=== PATIENT | female | born 1955 | race African-American/Black ===

== ENCOUNTER → 2016-09-12 | Outpatient (CLI) | payer MEDICARE ==
[~2016-09-12] MED LIST: ACETAMINOPHEN650 M1 PO; ADVAIR 250-501 EACH IH; ALBUTEROL17 GM INH; ALPRAZOLAM PO; ASPIRIN81 M1 PO; ASPIRIN81 M2 PO; ASPIRIN81 MG PO; ATENOLOL; ATENOLOL PO; ATENOLOL50 MG PO; AZITHROMYCIN250 MG PO; BACLOFEN10 MG PO; BACLOFEN20 M1 PO; BETAPACE PO; BETAPACE80 MG PO; CHANTIX1 MG PO; COLACE PO; COMBIVENT RESPIM4 GM IH; COMBIVENT14.7 GM INH; COUMADIN2.5 MG PO; CYMBALTA PO; DALIRESP500 MCG PO; DIAZEPAM PO; DURAGESIC75 MCG EXT; FENTANYL PATCH TOP; FENTANYL1 EAC1 TD; FERROUS SULFATE; FLEXERIL; FUROSEMIDE40 MG PO; GUAIFENESIN LA600 M1 PO; HCTZ PO; HYDROCHLOROTHIA25 MG PO; IRON325 ( 651 PO; K-DUR20 ME2 PO; K-LOR20 MEQ PO; KCL; KCL PO; LASIX; LASIX PO; LASIX20 MG PO; LISINOPRIL20 MG PO; LORTAB 7.5-5001 TAB PO; LOTREL; LOTREL 10/20 MG1 CAP; LOTREL 5/10 MG1 CAP; MULTI VITAMIN; MULTI-VITAMIN1 TAB; NORCO 5/325 TAB1 TAB PO; OMEPRAZOLE40 MG PO; OSCAL; OYSTER CALCIUM500 MG; PAXIL; PHENERGAN PO; PHENERGAN25 MG PO; PREDNISONE PO; PRILOSEC20 M1 PO; SERTRALINE HCL100 MG PO; SERTRALINE HCL50 M1 PO; SOTALOL120 MG PO; SYMBICORT INH; TENORMIN50 MG PO; TYLENOL PM; VITAMIN B12-FO1 EACH PO; VITAMIN C1000 M1 PO; VITAMIN D; VITAMIN D PO; XANAX0.5 MG PO; [UNRECOGNIZED DRUG - OTHER]
--- NOTE | ~2016-09-12 | MY11 ---
[facility] A Service of [facility] RADIOLOGY TEXT RESULTS PATIENT: DARSHANA GARCIA LOCATION: [facility] : 57 UNIT #: [id number] AGE: [address]: Liyah Smith MD SEX: F ORDER DR: [id number] [facility] [address] [place], [place] [address] [id number] O MR#: [id number] Acc #: [id number] NAME: DARSHANA GARCIA : 1955 SEX: F STUDY DATE/TIME: 09/12/2016 8:37 UNIT: [facility] ROOM: STUDY DESCRIPTION: MY Mammogram Screening Dig N[place]en Attending Physician: Liyah Smith M.D. Referring Physician: Liyah Smith M.D. Ordering Physician: Liyah Smith M.D. Primary Care Physician: Liyah Smith M.D. MEDICAL IMAGING REPORT This report is preliminary unless electronic signature is present EXAM Digital screening mammogram, 09/12/2016 HISTORY 61-year-old female no risk elevation. Annual screening. COMPARISON 07/15/2011, 03/21/2014 FINDINGS Digital imaging of each breast was completed utilizing a two-view examination of each breast in craniocaudal and mediolateral-oblique projections. Review and interpretation of digital mammograms include a second review in conjunction with FDA-approved CAD device. There is a normal parenchymal presentation bilaterally consistent with the patient's age. There are no breast masses imaged and no parenchymal asymmetry is visualized. There are no suspicious microcalcifications and I see no focal architectural disturbance. IMPRESSION Negative screening digital mammogram. One-year followup recommended. Patients over the age of 40 are entered into a reminder system with target due date for the next mammogram. A result letter will also be sent to the patient. BIRADS: 1 Negative ADDENDUM Breast parenchyma is fatty replaced. Dictated by... Jaren Cid M.D. [facility] A Service [facility] RADIOLOGY TEXT RESULTS PATIENT: DARSHANA GARCIA LOCATION: [facility] : 57 UNIT #: [id number] AGE: [address]: Liyah Smith MD SEX: F ORDER DR: THIS IS AN ELECTRONICALLY VERIFIED REPORT Jaren Cid M.D. at 09/12/2016 10:03 AM Sabrina TD: 09/12/2016 09:41 JOB #: [id number] MEDICAL IMAGING REPORT Page 1 of 1 COPY
== END | disposition home or self-care (01) ==
LOC: CWCC 08:12
DX: Z12.31 Encounter for screening mammogram for malignant neoplasm of breast (principal); R92.8 Other abnormal and inconclusive findings on diagnostic imaging of breast
CPT/HCPCS: G0202

== ENCOUNTER → 2016-09-23 | Outpatient (CLI) | payer MEDICARE ==
--- NOTE | ~2016-09-23 | MR176 ---
[facility] A Service of [facility] RADIOLOGY TEXT RESULTS PATIENT: DARSHANA GARCIA LOCATION: [facility] : 57 UNIT #: [id number] AGE: [address]: Liyah Smith MD SEX: F ORDER DR: [id number] [facility] [address] [place], [place] [address] [id number] O MR#: [id number] Acc #: [id number] NAME: DARSHANA GARCIA : 1955 SEX: F STUDY DATE/TIME: 09/23/2016 15:04 UNIT: [facility] ROOM: STUDY DESCRIPTION: MR Thoracic Wo Contrast Attending Physician: Liyah Smith M.D. Referring Physician: Liyah Smith M.D. Ordering Physician: Liyah Smith M.D. Primary Care Physician: Liyah Smith M.D. [facility] CENTER REPORT This report is preliminary unless electronic signature is present. EXAM Thoracic spine MRI HISTORY Severe back pain across the shoulders, worse when sitting up, accompanied by left leg weakness. Back pain has been chronic for 10 years. Intense pain has worsened over the past year. TECHNIQUE Multiplanar imaging of the thoracic spine was performed with short and long TR. FINDINGS There are moderate degenerative changes at all thoracic discs. There is no significant thoracic disc herniation or osteophyte formation back into the spinal canal. The thoracic spinal canal is widely patent. There is no evidence of marrow edema to suggest a recent fracture. The thoracic cord is normal in size and signal. No paraspinous masses are seen. Thoracic aorta is generally tortuous and ectatic, but there is no evidence of aortic dissection. Maximum diameter of the upper descending thoracic aorta is 3.3 cm. IMPRESSION 1. Moderate multilevel thoracic degenerative disc disease with no significant canal narrowing or cord compression. 2. No cord lesions are seen. 3. Tortuous ectatic thoracic aorta without evidence of dissection. Dictated by... Jean Willis M.D. [facility] A Service of [facility] RADIOLOGY TEXT RESULTS PATIENT: DARSHANA GARCIA LOCATION: [facility] : 57 UNIT #: [id number] AGE: [address]: Liyah Smith MD SEX: F ORDER DR: THIS IS AN ELECTRONICALLY VERIFIED REPORT Jean Willis M.D. at 09/24/2016 4:29 PM Mike TD: 09/24/2016 13:27 JOB #: [id number] MRI CENTER REPORT Page 1 of 1 COPY
--- NOTE | ~2016-09-23 | MR113 ---
[facility] A Service of [facility] RADIOLOGY TEXT RESULTS PATIENT: DARSHANA GARCIA [facility] : 57 UNIT #: [id number] AGE: [address]: Liyah Smith MD SEX: F ORDER DR: [id number] [facility] [address] [place], [place] [address] [id number] O MR#: [id number] Acc #: [id number] NAME: DARSHANA GARCIA. : 1955 SEX: F STUDY DATE/TIME: 09/23/2016 15:04 UNIT: [facility] ROOM: STUDY DESCRIPTION: MR Lumbar Wo Contrast Attending Physician: Liyah Smith M.D. Referring Physician: Liyah Smith M.D. Ordering Physician: Liyah Smith M.D. Primary Care Physician: Liyah Smith M.D. MRI CENTER REPORT This report is preliminary unless electronic signature is present. EXAM MRI of the lumbar spine without contrast. DATE OF EXAM 09/23/2016 COMPARISON Plain films of lumbar spine dated 09/11/2006. CT lumbar spine from 06/04/2002, could not be currently unarchived. None. HISTORY Left leg weakness, intermittent numbness and tingling in the feet. The patient has had chronic pain for 10 years and the pain is worse in the last year. FINDINGS Multisequence, multiplanar imaging of the lumbar spine was obtained without contrast. Bipedicular screws and stabilization rods are at L4-5. Susceptibility artifact from hardware limits evaluation of the adjacent structures and hardware loosening cannot be evaluated. Intervertebral disc prosthesis is noted without complete bony fusion. Schmorl nodes are noted along the endplates of upper to mid-lumbar levels, particularly at L2. Degenerative disc disease is at multiple levels. Conus terminates at L1-2. Signal of conus and cauda equina do not demonstrate any significant abnormality. Postoperative scar is noted in the left paramidline aspect of L5 with suspicious left hemilaminectomy. Correlate with operative note. No drainable fluid collection is seen. Retroperitoneum demonstrates increased T2 signal oval 3.2 cm lesion within the anterior aspect of the mid-left kidney in the last image. It is incompletely characterized. L1-2: Mild disc bulge with mild bilateral facet changes. No significant canal stenosis or neural foraminal narrowing. [facility] A Service of [facility] RADIOLOGY TEXT RESULTS PATIENT: DARSHANA GARCIA [facility] : 57 UNIT #: [id number] AGE: [address]: Liyah Smith MD SEX: F ORDER DR: L2-3: Mild disc bulge with mild bilateral facet changes, and mild inferior bilateral neural foraminal narrowing with borderline size to mild canal stenosis. L3-4: Concentric disc bulge with mild bilateral neural foraminal narrowing and tewa-do-mvrpwcam canal stenosis. L4-5: Postoperative changes, and intervertebral disc prosthesis is seen without any significant neural foraminal narrowing or canal stenosis. L5-S1: Mild disc bulge without canal stenosis or neural foraminal narrowing. Mild left facet hypertrophy change is seen. IMPRESSION 1. Postoperative changes are noted at L4-5 with intervertebral disc prosthesis. There are bipedicular screws with stabilization rods at this level without any drainable obvious fluid collection in the postoperative subcutaneous tissue. Evaluation of hardware loosening is limited with this modality. Patient likely has had hemilaminectomy at L5. Correlate with operative note. 2. Degenerative changes are noted in the L2-3, followed by L3-4 level with canal stenosis and mild bilateral neural foraminal narrowing. Dictated by... Cami Mckinney M.D. THIS IS AN ELECTRONICALLY VERIFIED REPORT Cami Mckinney M.D. at 09/25/2016 3:46 PM CPR/jt TD: 09/24/2016 17:50 JOB #: [id number] MRI CENTER REPORT Page 1 of 1 COPY
== END | disposition home or self-care (01) ==
LOC: CMRI 13:23
DX: M51.36 Other intervertebral disc degeneration, lumbar region (principal); M51.34 Other intervertebral disc degeneration, thoracic region; M62.81 Muscle weakness (generalized); I77.810 Thoracic aortic ectasia; M47.816 Spondylosis without myelopathy or radiculopathy, lumbar region; Z98.890 Other specified postprocedural states
CPT/HCPCS: 72146; 72148